=== PATIENT | male | born 1995 | race Two or more races ===

== ENCOUNTER 2017-04-09 21:12 | Emergency (ER) | payer SELFPAY | END 2017-04-09 21:27 | disposition left against medical advice (07) | LOC: ER 21:12 | DX: R10.13 Epigastric pain (principal); Z53.21 Procedure and treatment not carried out due to patient leaving prior to being seen by health care provider ==

== ENCOUNTER 2019-01-07 23:02 | Emergency (ER) | payer MEDICAID ==
[~2019-01-07] VITALS: Ht 182.9 cm; Wt 119.3 kg
[2019-01-07 23:18] VITALS: BP 175/94
[2019-01-07] MEDS ORDERED: ORPHENADRINE CITRATE 60 MG/2 ML VIAL. IM ONE (23:45)
--- NOTE | 2019-01-08 01:02 | RAD ---
INDICATION: Pain in the head and neck COMPARISON: None. TECHNIQUE: Axial CT images obtained through the head and cervical spine without intravenous contrast. Coronal and sagittal reformats processed of cervical spine. One or more of the following individualized dose reduction techniques were utilized for this examination: 1. Automated exposure control; 2. Adjustment of the mA and/or kV according to patient size; 3. Use of iterative reconstruction technique. FINDINGS: Head: No intracranial hemorrhage. No midline shift. Basal cisterns patents. Ventricles and sulci are within normal limits. No acute osseous abnormality. Orbits and paranasal sinuses unremarkable. Cervical: No definite acute fracture. No dislocation. No evidence of perivertebral hematoma. IMPRESSION: 1. No acute intracranial hemorrhage. 2. No definite acute fracture or dislocation of the cervical spine. Electronically signed by: Vinay Lawton MD (01/08/2019 1:00 AM) [facility]
--- NOTE | 2019-01-08 01:28 | RAD ---
INDICATION: Chest and abdomen pain COMPARISON: None. TECHNIQUE: Axial CT images obtained through the chest, abdomen and pelvis without contrast. Limited assessment of solid organ structures and vasculature secondary to lack of intravenous contrast.. One or more of the following individualized dose reduction techniques were utilized for this examination: 1. Automated exposure control; 2. Adjustment of the mA and/or kV according to patient size; 3. Use of iterative reconstruction technique. FINDINGS: Chest: No evidence of pneumothorax. No focal airspace consolidation. Thoracic aorta is not aneurysmal. Subcutaneous induration the fat anterior chest wall. There is some heterogenous density in the anterior mediastinum. Can be seen with residual thymus in a patient of this age. Abdomen and pelvis: Abdominal aorta is not aneurysmal. Induration the fat anterior abdominal and pelvic wall. No definite perihepatic hemorrhage. No peripancreatic fluid collection. No perisplenic hemorrhage. No left-sided hydronephrosis. Urinary bladder has minimal urine within it at time of exam. No right-sided hydronephrosis. Small fat-containing umbilical hernia. No dilated loops of bowel to suggest obstruction. Osseous findings: There is some suspected disc protrusions within the lumbar spine which is more than typically seen for the patient's age with associated narrowing of the central canal IMPRESSION: 1. Limited assessment of the solid organ structures and vasculature secondary to lack of intravenous contrast. Within limits of the exam there is no intrathoracic or intra-abdominal hemorrhage identified. 2. Subcutaneous induration of the fat at the anterior chest, abdomen and pelvis wall which can be seen with a soft tissue contusion if the patient had trauma to this region. Electronically signed by: Vinay Lawton MD (01/08/2019 1:25 AM) [facility]
[2019-01-08] MEDS ORDERED: HYDR-3164 PO (01:38)
[2019-01-08] MEDS ORDERED: ORPH100T PO (01:38)
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
[2019-01-09] MEDS ORDERED: CYCL10TA2 PO (17:42)
[2019-01-09] MEDS ORDERED: TRAM-48 PO (17:42)
== END 2019-01-08 01:45 | disposition home or self-care (01) ==
LOC: ER 23:02
DX: S20.212A Contusion of left front wall of thorax, initial encounter (principal); S30.1XXA Contusion of abdominal wall, initial encounter; M54.2 Cervicalgia; R51 Headache; V86.09XA Driver of other special all-terrain or other off-road motor vehicle injured in traffic accident, initial encounter; Y93.89 Activity, other specified; Y92.488 Other paved roadways as the place of occurrence of the external cause; Y99.8 Other external cause status
CPT/HCPCS: 70450; 71250; 72125; 74176; 96372; 99284; J2360

== ENCOUNTER 2019-01-09 16:21 | Emergency (ER) | payer MEDICAID ==
[~2019-01-09] VITALS: Ht 180.3 cm; Wt 119.3 kg
[~2019-01-09 16:21] MED LIST: HYDR-3164 PO; ORPH100T PO
[2019-01-09 16:54] VITALS: BP 137/84
[2019-01-09] MEDS ORDERED: traMADol 50 MG TABLET PO ONE (17:15)
[2019-01-09] MEDS ORDERED: CYCLOBENZAPRINE 10 MG TABLET. PO ONE (17:15)
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
[2019-01-09] MEDS ORDERED: TRAM-48 PO (17:42)
[2019-01-09] MEDS ORDERED: CYCL10TA2 PO (17:42)
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
== END 2019-01-09 17:55 | disposition home or self-care (01) ==
LOC: ER 16:21
DX: S29.019D Strain of muscle and tendon of unspecified wall of thorax, subsequent encounter (principal); S20.219D Contusion of unspecified front wall of thorax, subsequent encounter; V86.99XD Unspecified occupant of other special all-terrain or other off-road motor vehicle injured in nontraffic accident, subsequent encounter
CPT/HCPCS: 71046; 99284

== ENCOUNTER 2019-02-18 09:27 | Emergency (ER) | payer MEDICAID ==
[~2019-02-18] VITALS: Ht 182.9 cm; Wt 123.4 kg
[~2019-02-18 09:27] MED LIST changes: +CYCL10TA2 PO; +TRAM-48 PO
[2019-02-18 09:37] VITALS: BP 143/82
[2019-02-18] MEDS ORDERED: HYDR30CR61 TP (09:59)
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
== END 2019-02-18 10:46 | disposition home or self-care (01) ==
LOC: ER 09:27
DX: K60.2 Anal fissure, unspecified (principal); F17.210 Nicotine dependence, cigarettes, uncomplicated
CPT/HCPCS: 99282

== ENCOUNTER 2019-05-31 14:08 | Emergency (ER) | payer MEDICAID ==
[~2019-05-31] VITALS: Ht 182.9 cm; Wt 132.9 kg
[~2019-05-31 14:08] MED LIST changes: +HYDR30CR61 TP
[2019-05-31 15:45] VITALS: BP 115/66
[2019-05-31] MEDS ORDERED: MECLIZINE HCL 12.5 MG TABLET. PO STA (15:46)
[2019-05-31] MEDS ORDERED: IV NORMAL SALINE 1000ML BAG 1,000 ML IV ONE (16:00)
[2019-05-31] MEDS ORDERED: ONDANSETRON PF 4 MG/2 ML VIAL. IV ONE (16:00)
--- NOTE | 2019-05-31 16:02 | PHYS DOC ---
Past Medical History Past Medical History: No Pertinent History Past Surgical History: No Surgical History Alcohol Use: Rarely Drug Use: Marijuana Adult General Chief Complaint Chief Complaint: DIZZY/LIGHT HEADED HPI HPI Patient is a 24 year old male who presents with dizziness that's been ongoing since 2 hours before arrival. The patient states is worse when he stands up. Dizziness accompanied by nausea, and vomiting. States the dizziness can be described as the room spinning. Denies ear pain. Review of Systems Review of Systems Constitutional: Denies fever or chills [] Eyes: Denies change in visual acuity, redness, or eye pain [] HENT: Denies nasal congestion or sore throat [] Respiratory: Denies cough or shortness of breath [] Cardiovascular: No additional information not addressed in HPI [] GI: Reports nausea, and vomiting, Denies abdominal pain, bloody stools or diarrhea [] : Denies dysuria or hematuria [] Musculoskeletal: Denies back pain or joint pain [] Integument: Denies rash or skin lesions [] Neurologic: Reports vertigo. Denies headache, focal weakness or sensory changes [] Endocrine: Denies polyuria or polydipsia [] Complete systems were reviewed and found to be within normal limits, except as documented in this note. Current Medications Current Medications Current Medications Medications (Trade) Dose Ordered Sig/Ray Start Time Stop Time Status Last Admin Dose Admin Meclizine HCl (Antivert) 25 mg 1X STAT 05/31/19 15:46 05/31/19 15:49 DC 05/31/19 16:40 25 MG Ondansetron HCl (Zofran) 4 mg 1X ONCE 05/31/19 16:00 05/31/19 16:01 DC 05/31/19 16:40 4 MG Sodium Chloride 1,000 ml @ 1,000 mls/hr 1X ONCE 05/31/19 16:00 05/31/19 16:59 DC 05/31/19 16:40 1,000 MLS/HR Allergies Allergies Allergies Coded Allergies Type Severity Reaction Last Updated Verified No Known Drug Allergies 01/07/19 No Physical Exam Physical Exam Constitutional: Well developed, well nourished, no acute distress, non-toxic appearance. [] HENT: Normocephalic, atraumatic, bilateral external ears normal, oropharynx m oist, no oral exudates, nose normal. [] Eyes: PERRLA, EOMI, conjunctiva normal, no discharge. [] Neck: Normal range of motion, no tenderness, supple, no stridor. [] Cardiovascular:Heart rate regular rhythm, no murmur [] Lungs & Thorax: Bilateral breath sounds clear to auscultation [] Abdomen: Bowel sounds normal, soft, no tenderness, no masses, no pulsatile masses. [] Skin: Warm, dry, no erythema, no rash. [] Back: No tenderness, no CVA tenderness. [] Extremities: No tenderness, no cyanosis, no clubbing, ROM intact, no edema. [] Neurologic: Alert and oriented X 3, normal motor function, normal sensory function, no focal deficits noted. [] Psychologic: Affect normal, judgement normal, mood normal. [] Current Patient Data Vital Signs Vital Signs Date Time Temp Pulse Resp B/P (MAP) Pulse Ox O2 Delivery O2 Flow Rate FiO2 05/31/19 15:05 98.3 61 16 124/62 (82) 100 Room Air 98.3 Lab Values Laboratory Tests Test 05/31/19 15:18 05/31/19 16:30 Glucose (Fingerstick) 122 mg/dL (70-99) H White Blood Count 11.0 x10^3/uL (4.0-11.0) Red Blood Count 4.85 x10^6/uL (4.30-5.70) Hemoglobin 14.4 g/dL (13.0-17.5) Hematocrit 42.2 % (39.0-53.0) Mean Corpuscular Volume 87 fL (79-100) Mean Corpuscular Hemoglobin 30 pg (25-35) Mean Corpuscular Hemoglobin Concent 34 g/dL (31-37) Red Cell Distribution Width 13.2 % (11.5-14.5) Platelet Count 292 x10^3/uL (140-400) Neutrophils (%) (Auto) 80 % (31-73) H Lymphocytes (%) (Auto) 12 % (24-48) L Monocytes (%) (Auto) 7 % (0-9) Eosinophils (%) (Auto) 1 % (0-3) Basophils (%) (Auto) 0 % (0-3) Neutrophils # (Auto) 8.8 x10^3/uL (1.8-7.7) H Lymphocytes # (Auto) 1.4 x10^3/uL (1.0-4.8) Monocytes # (Auto) 0.7 x10^3/uL (0.0-1.1) Eosinophils # (Auto) 0.1 x10^3/uL (0.0-0.7) Basophils # (Auto) 0.0 x10^3/uL (0.0-0.2) Sodium Level 139 mmol/L (136-145) Potassium Level 3.9 mmol/L (3.5-5.1) Chloride Level 103 mmol/L (98-107) Carbon Dioxide Level 28 mmol/L (21-32) Anion Gap 8 (6-14) Blood Urea Nitrogen 13 mg/dL (8-26) Creatinine 0.8 mg/dL (0.7-1.3) Estimated GFR (Cockcroft-Gault) 120.9 BUN/Creatinine Ratio 16 (6-20) Glucose Level 117 mg/dL (70-99) H Calcium Level 9.0 mg/dL (8.5-10.1) Total Bilirubin 0.4 mg/dL (0.2-1.0) Aspartate Amino Transferase (AST) 33 U/L (15-37) Alanine Aminotransferase (ALT) 78 U/L (16-63) H Alkaline Phosphatase 74 U/L (46-116) Total Protein 7.5 g/dL (6.4-8.2) Albumin 3.6 g/dL (3.4-5.0) Albumin/Globulin Ratio 0.9 (1.0-1.7) L Laboratory Tests 05/31/19 16:30 Laboratory Tests 05/31/19 16:30 EKG EKG [] Radiology/Procedures Radiology/Procedures DICTATED and SIGNED BY: LARS SANTANA DO DATE: 05/31/19 1608 [][facility] [address] [place], [place] [id number] IMAGING REPORT Signed PATIENT: GERTRUDE MACIAS ACCOUNT: [id number] : 1995 LOCATION: ER AGE: 24 SEX: M EXAM STATUS: REG ER ORD. PHYSICIAN: FABRICIO HUERTAS APRN REASON: dizziness PROCEDURE: CT HEAD WO CONTRAST PQRS Compliance statement: One or more of the following individualized dose reduction techniques were utilized for this examination: 1. Automated exposure control. 2. Adjustment of the mA and/or kV according to patient size. 3. Use of iterative reconstruction technique. Indication: Dizziness TECHNIQUE: CT head without IV contrast COMPARISON: 01/08/2019 FINDINGS: No pathologic extra-axial or intra-axial fluid collection. The ventricles and basal cisterns are within normal limits. No acute intracranial bleed. No focal loss of wu-white differentiation. Orbits are within normal limits. No suspicious calvarial lesion. Visualized paranasal sinuses and mastoid air cells are clear. IMPRESSION: No acute intracranial process on this noncontrast CT. Electronically signed by: Lars Santana DO (05/31/2019 4:08 PM) [id number] DICTATED and SIGNED BY: LARS SANTANA DO DATE: 05/31/19 1608 Course & Med Decision Making Course & Med Decision Making Pertinent Labs and Imaging studies reviewed. (See chart for details) Will get CT head, labs, fluids, zofran, and meclizine. Labs and imaging are unremarkable. Dragon Disclaimer Dragon Disclaimer This electronic medical record was generated, in whole or in part, using a voice recognition dictation system. Departure Departure Impression: Primary Impression: Vertigo Disposition: 01 HOME, SELF-CARE Condition: STABLE Referrals: NO PCP (PCP) Patient Instructions: Vertigo Additional Instructions: Thank you for visiting [facility]. We appreciate you trusting us with your care. If any additional problems come up don't hesitate to return to visit us. Please follow up with your primary care provider so they can plan additional care if needed and know about the problem that you had. If symptoms worsen come back to the Emergency Department. Any concerning symptoms that start such as chest pain, shortness of air, weakness or numbness on one side of the body, running high fevers or any other concerning symptoms return to the ER. Scripts Meclizine Hcl (MECLIZINE HCL) 25 Mg Tablet 1 TAB PO PRN TID PRN for DIZZINESS, #30 TAB Prov: FABRICIO HUERTAS APRN 05/31/19 FABRICIO HUERTAS APRN May 31, 2019 16:02
--- NOTE | 2019-05-31 16:11 | RAD ---
PQRS Compliance statement: One or more of the following individualized dose reduction techniques were utilized for this examination: 1. Automated exposure control. 2. Adjustment of the mA and/or kV according to patient size. 3. Use of iterative reconstruction technique. Indication: Dizziness TECHNIQUE: CT head without IV contrast COMPARISON: 01/08/2019 FINDINGS: No pathologic extra-axial or intra-axial fluid collection. The ventricles and basal cisterns are within normal limits. No acute intracranial bleed. No focal loss of wu-white differentiation. Orbits are within normal limits. No suspicious calvarial lesion. Visualized paranasal sinuses and mastoid air cells are clear. IMPRESSION: No acute intracranial process on this noncontrast CT. Electronically signed by: Lars Santana DO (05/31/2019 4:08 PM) [id number]
[2019-05-31 16:44] LABS: BASO % 0 % (0-3); EOS # 0.1 x10^3/uL (0.0-0.7); EOS % 1 % (0-3); HEMATOCRIT 42.2 % (39.0-53.0); HEMOGLOBIN 14.4 g/dL (13.0-17.5); LYMPH # 1.4 x10^3/uL (1.0-4.8); LYMPH % 12 % (24-48); MEAN CORPUSCULAR HEMOGLOBIN 30 pg (25-35); MEAN CORPUSCULAR HGB CONC 34 g/dL (31-37); MEAN CORPUSCULAR VOLUME 87 fL (79-100); MONO # 0.7 x10^3/uL (0.0-1.1); MONO % 7 % (0-9); NEUT # 8.8 x10^3/uL (1.8-7.7); NEUT % 80 % (31-73); PLATELET COUNT 292 x10^3/uL (140-400); RED BLOOD COUNT 4.85 x10^6/uL (4.30-5.70); RED CELL DISTRIBUTION WIDTH 13.2 % (11.5-14.5)
[2019-05-31 16:53] LABS: CREATININE 0.8 mg/dL (0.7-1.3); GFR 120.9; POTASSIUM 3.9 mmol/L (3.5-5.1)
[2019-05-31 16:59] LABS: ALBUMIN 3.6 g/dL (3.4-5.0); ALBUMIN/GLOBULIN RATIO 0.9 (1.0-1.7); TOTAL BILIRUBIN 0.4 mg/dL (0.2-1.0); TOTAL PROTEIN 7.5 g/dL (6.4-8.2)
[2019-05-31] MEDS ORDERED: MECL25TA3 PO (17:30)
== END 2019-05-31 17:52 | disposition home or self-care (01) ==
LOC: ER 14:08
DX: R42 Dizziness and giddiness (principal); R11.2 Nausea with vomiting, unspecified
CPT/HCPCS: 36415; 70450; 80053; 82962; 85025; 96361; 96374; 99285; J2405; J7030; J8597

== ENCOUNTER 2019-06-27 11:37 | Emergency (ER) | payer MEDICAID ==
[~2019-06-27] VITALS: Ht 182.9 cm; Wt 132.9 kg
[~2019-06-27 11:37] MED LIST changes: +MECL-75 PO
[2019-06-27 12:35] VITALS: BP 125/88
[2019-06-27 13:32] LABS: INFLUENZA A PATIENT NEGATIVE (NEGATIVE)
[2019-06-27 13:33] LABS: INFLUENZA B PATIENT POSITIVE (NEGATIVE)
[2019-06-27] MEDS ORDERED: OSEL75CA PO (13:53)
[2019-06-27] MEDS ORDERED: BENZ100C PO (13:53)
--- NOTE | 2019-06-27 13:54 | PHYS DOC ---
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) Review of Systems Review of Systems Constitutional: reports fever Eyes: Denies change in visual acuity, redness, or eye pain [] HENT: Denies nasal congestion or sore throat [] Respiratory: cough deniesshortness of breath [] Cardiovascular: No additional information not addressed in HPI [] GI: Denies abdominal pain, nausea, vomiting, bloody stools or diarrhea [] : Denies dysuria or hematuria [] Musculoskeletal: Denies back pain or joint pain [] Integument: Denies rash or skin lesions [] Neurologic: Denies headache, focal weakness or sensory changes [] All other systems were reviewed and found to be within normal limits, except as documented in this note. 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 [] HENT: Normocephalic, atraumatic, bilateral external ears normal, oropharynx mo ist, no oral exudates, nose normal. [] Eyes: PERRLA, EOMI, conjunctiva normal, no discharge. [] Neck: Normal range of motion, no tenderness, supple, no stridor. [] Cardiovascular:Heart rate regular rhythm, no murmur [] Lungs & Thorax: Bilateral breath sounds clear to auscultation [] Abdomen: Bowel sounds normal, soft, no tenderness, no masses, no pulsatile masses. [] Skin: Warm, dry, no erythema, no rash. [] Back: No tenderness, no CVA tenderness. [] Extremities: No tenderness, no cyanosis, no clubbing, ROM intact, no edema. [] Neurologic: Alert and oriented X 3, normal motor function, normal sensory function, no focal deficits noted. [] Psychologic: Affect normal, judgement normal, mood normal. [] (TROY TRAN APRN) Current Patient Data Vital Signs Vital Signs Date Time Temp Pulse Resp B/P (MAP) Pulse Ox O2 Delivery O2 Flow Rate FiO2 06/27/19 12:35 99.4 112 16 125/88 (100) 98 Room Air 99.4 (FABRICIO BLOCK DO) Lab Values Laboratory Tests Test 06/27/19 12:30 Influenza Type A Antigen Negative (NEGATIVE) Influenza Type B Antigen Positive (NEGATIVE) (FABRICIO BLOCK DO) EKG EKG [] (TROY TRAN APRN) Radiology/Procedures Radiology/Procedures [] (TROY TRAN APRN) Course & Med Decision Making Course & Med Decision Making Pertinent Labs and Imaging studies reviewed. (See chart for details) This is a 24-year-old male patient with fever and cough for 2 days. Positive influenza B. Discharged with Tamiflu, Tessalon Perles and instructed to take Tylenol/Motrin. (TROY TRAN APRN) Dragon Disclaimer Dragon Disclaimer This electronic medical record was generated, in whole or in part, using a voice recognition dictation system. (TROY TRAN APRN) Departure Departure Impression: Primary Impression: Influenza B Additional Impressions: Fever Cough Disposition: 01 HOME, SELF-CARE Condition: STABLE Referrals: NO PCP (PCP) follow up with your doctor in 1-2 weeks Patient Instructions: Cough, Adult, Fever, Adult, [id number], Influenza, Adult Additional Instructions: You have influenza B. this is a viral illness please take Tylenol every 4 hours and Motrin every 6 hours. Please push fluids. Please take the prescribed Tamiflu as ordered. Follow-up with your own doctor in 1-2 weeks. Scripts Benzonatate (TESSALON PERLE) 100 Mg Capsule 1 CAP PO TID, #30 CAP Prov: TROY TRAN APRN 06/27/19 Oseltamivir Phosphate (TAMIFLU) 75 Mg Capsule 1 CAP PO BID, #10 CAP Prov: TROY TRAN APRN 06/27/19 Attending Signature Attending Signature I have reviewed the PA/CVICU RN's note and plan of care. I was available for consultation as needed during the patient's visit in the emergency department. I agree with the clinical impression, plan, and disposition. (BLOCK,FABRICIO R DO) Problem Qualifiers Additional Impressions: Fever Fever type: unspecified Qualified Codes: R50.9 - Fever, unspecified CHELSEATRYO SMITH Jun 27, 2019 13:54 FABRICIO BLOCK DO Jun 28, 2019 06:16
== END 2019-06-27 13:58 | disposition home or self-care (01) ==
LOC: ER 11:37
DX: J10.1 Influenza due to other identified influenza virus with other respiratory manifestations (principal)
CPT/HCPCS: 87804; 99284

== ENCOUNTER 2020-08-24 18:43 | Emergency (ER) | payer SELFPAY ==
[~2020-08-24] VITALS: Ht 185.4 cm; Wt 111.8 kg
[~2020-08-24 18:43] MED LIST changes: +BENZ100C PO; +OSEL75CA PO
[2020-08-24] MEDS ORDERED: IV NORMAL SALINE 1000ML BAG 1,000 ML IV ONE (19:00)
--- NOTE | 2020-08-24 19:04 | PHYS DOC ---
Past Medical History Past Medical History: No Pertinent History Past Surgical History: No Surgical History Smoking Status: Current Every Day Smoker Alcohol Use: Rarely Drug Use: Marijuana General Adult EDM: Chief Complaint: HYPOTENSION HPI: HPI: Patient is a 25 year old male who is currently being treated for opiate abuse and taking methadone on day 3 presents for evaluation of hypotension dizziness diaphoresis and chest discomfort. Patient states approximately 30 minutes after taking 35 mg methadone he started to feel dizzy lightheaded and became diaphoretic. Patient called 911 upon their arrival patient was found to be hypotensive. EMS treated patient with IV fluids. Upon arrival patient ambulated into the ER with a normal steady gait. On exam patient states he feels much better he denies any dizziness diaphoresis or chest discomfort. Patient's blood pressures 110 systolic. EKG performed shows a sinus rhythm heart rate [address] elevation no ST depression no acute CT. Treatment plan to rehydrate patient and observe. Review of Systems: Review of Systems: Review of systems: Constitutional symptoms- No fever, no chills. Eyes- No Discharge, No Visual Loss Respiratory symptoms- No shortness of breath, No wheezing, No Dyspnea on Exertion Cardiovascular Systems;Positive chest pain, No Palpitations, No syncope Gastrointestinal symptoms: NO abdominal pain, no nausea, no vomiting or diarrhea. Genitourinary symptoms: No dysuria. Musculoskeletal symptoms: No back pain No extremity pain. NEUROLOGICAL Symptoms: No headache, no generalized weakness; No focal Weakness positive dizziness Skin positive diaphoresis Heart Score: Risk Factors: Risk Factors: DM, Current or recent (<one month) smoker, HTN, HLP, family history of CAD, obesity. Risk Scores: Score 0 - 3: 2.5% MACE over next 6 weeks - Discharge Home Score 4 - 6: 20.3% MACE over next 6 weeks - Admit for Clinical Observation Score 7 - 10: 72.7% MACE over next 6 weeks - Early Invasive Strategies Allergies: Allergies: Allergies Coded Allergies Type Severity Reaction Last Updated Verified No Known Drug Allergies 01/07/19 No Physical Exam: PE: General: alert, no acute distress. Skin: warm, dry and intact. Head:: Normocephalic, atraumatic. Neck: Trachea midline. Eyes: EOMI, Normal conjunctiva, No drainage CARDIOVASCULAR: Regular rate and rhythm RESPIRATORY: No respiratory distress Back: Full range of motion. MUSCULOSKELETAL: Full range of motion of bilateral upper and lower extremities. NEUROLOGICAL: Alert and noted to person, place and time. No neurological deficits observed Psychiatric: Cooperative. Normal judgment EKG: EKG: EKG performed at 1846 heart rate [address] elevation no ST depression no acute CT [] Radiology/Procedures: Radiology/Procedures: [] Course & Med Decision Making: Course & Med Decision Making Pertinent Labs and Imaging studies reviewed. (See chart for details) [] Patient was evaluated for chief complaint. Based upon history of present illness and physical exam only an EKG was performed. EKG was within normal limits. Treatment included 1 L of IV fluids. Patient's was monitored vital signs have been stable. Patient denied any return of chest pain dizziness diaphoresis. Dragon Disclaimer: Dragon Disclaimer: This electronic medical record was generated, in whole or in part, using a voice recognition dictation system. Departure Departure Impression: Primary Impression: Medication reaction Additional Impression: Hypotension Condition: STABLE Referrals: NO PCP (PCP) Patient Instructions: Dizziness, Hypotension Additional Instructions: Drug Reaction Medication Intolerance MANJU WISE DO Aug 24, 2020 19:04
--- NOTE | 2020-08-24 19:52 | EKG ---
[facility] [address] [place] [address] Test Date: 2020-08-24 Test Time: 18:46:57 Pat Name: GERTRUDE MACIAS Department: Room: Gender: M [employer] Purch[employer]: : 1995 Requested By: MANJU WISE Order Number: [id number] Reading MD: Measurements Intervals Hospers Rate: 82 P: 24 AL: 150 QRS: -9 QRSD: 80 T: 9 QT: 370 QTc: 435 Interpretive Statements SINUS RHYTHM LEFTWARD AXIS OTHERWISE NORMAL ECG RI6.01 No previous ECG available for comparison
[2020-08-24 20:05] VITALS: BP 103/51
== END 2020-08-24 20:05 | disposition home or self-care (01) ==
LOC: ER 18:43
DX: I95.9 Hypotension, unspecified (principal); T40.3X5A Adverse effect of methadone, initial encounter; R07.89 Other chest pain; R42 Dizziness and giddiness; R61 Generalized hyperhidrosis; F11.10 Opioid abuse, uncomplicated; F17.200 Nicotine dependence, unspecified, uncomplicated; Y92.89 Other specified places as the place of occurrence of the external cause
CPT/HCPCS: 93005; 96360; 99283; J7030

== ENCOUNTER 2021-05-04 11:49 | Observation (INO) | payer SELFPAY ==
[~2021-05-04] VITALS: Ht 185.4 cm; Wt 111.8 kg
[~2021-05-04 11:49] MED LIST changes: +CYCL10TA19 PO; -CYCL10TA2 PO
[2021-05-04] MEDS ORDERED: HYDROcodone/APAP 5/325MG 1 TAB TABLET PO ONE (13:15)
[2021-05-04] MEDS ORDERED: IBUPROFEN 200 MG TABLET. PO ONE (13:15)
--- NOTE | 2021-05-04 13:55 | RAD ---
XR EXAM OF ANKLE_RIGHT 3VIEWS, XR FOOT_RIGHT 3 VIEWS DATE: 05/04/2021 1:04 PM INDICATION: Pain swelling after twisting ankle 4 days ago COMPARISON: None. FINDINGS: Bones: Acute trimalleolar fracture with mild displacement. Joints: The ankle mortise is congruent. No widening of the distal tibiofibular syndesmosis. Miscellaneous: Soft tissue swelling about the ankle. IMPRESSION: Acute trimalleolar fracture Electronically signed by: Bharat Park MD (05/04/2021 1:53 PM) [facility]
--- NOTE | 2021-05-04 14:03 | PHYS DOC ---
Past Medical History Past Medical History: No Pertinent History (FABRICIO PADILLA APRN) Past Surgical History: No Surgical History (FABRICIO PADILLA APRN) Smoking Status: Current Every Day Smoker Alcohol Use: Rarely Drug Use: Marijuana (FABRICIO PADLILA APRN) General Adult EDM: Chief Complaint: ANKLE PROBLEM HPI: HPI: Patient is a 25 year old male presents emergency department chief complaint of right ankle pain swelling bruising for the past 4 days. Patient reports he was in shelter and jumped off the top bunk and rolled his ankle feeling a crack, patient reports he has been unable to ambulate or put pressure on his right foot and ankle since the incident. Patient reports he just got out of shelter today and came straight to the emergency department for medical evaluation. Patient denies other physical complaints or physical concerns. Denies allergies to medications, states she does not take any [id number] or prescription medications at home. Patient reports a 8 out of 10 pain. (FABRICIO PADILLA APRN) Review of Systems: Review of Systems: 14 body systems of review of systems have been reviewed. See HPI for pertinent positives and negative responses, otherwise all other systems are negative, nonpertinent or noncontributory. Constitutional: Negative except as outlined in HPI above. Skin: Negative except as outlined in HPI above. Eyes: Negative except as outlined in HPI above. HENT: Negative except as outlined in HPI above. Respiratory: Negative except as outlined in HPI above. Cardiovascular: Negative except as outlined in HPI above. GI: Negative except as outlined in HPI above. : Negative except as outlined in HPI above. Musculoskeletal: Negative except as outlined in HPI above. Integument: Negative except as outlined in HPI above. Neurologic: Negative except as outlined in HPI above. Endocrine: Negative except as outlined in HPI above. Lymphatic: Negative except as outlined in HPI above. Psychiatric: Negative except as outlined in HPI above. (FARBICIO PADILLA APRN) Heart Score: C/O Chest Pain: No Risk Factors: Risk Factors: DM, Current or recent (<one month) smoker, HTN, HLP, family history of CAD, obesity. Risk Scores: Score 0 - 3: 2.5% MACE over next 6 weeks - Discharge Home Score 4 - 6: 20.3% MACE over next 6 weeks - Admit for Clinical Observation Score 7 - 10: 72.7% MACE over next 6 weeks - Early Invasive Strategies (FABRICIO PADILLA APRN) Current Medications: Current Medications Medications (Trade) Dose Ordered Sig/Ray Start Time Stop Time Status Last Admin Dose Admin Acetaminophen/ Hydrocodone Bitart (Lortab 5/325) 1 tab 1X ONCE 05/04/21 13:15 05/04/21 13:16 DC 05/04/21 13:20 1 TAB Ibuprofen (Motrin) 600 mg 1X ONCE 05/04/21 13:15 05/04/21 13:16 DC 05/04/21 13:21 600 MG (FABRICIO PADILLA APRN) Allergies: Allergies: Allergies Coded Allergies Type Severity Reaction Last Updated Verified No Known Drug Allergies 01/07/19 No (FABRICIO PADILLA APRN) Physical Exam: PE: Constitutional: Well developed, well nourished, no acute distress, non-toxic appearance. 25-year-old male ambulates with crutches favoring right lower extremity otherwise in no apparent distress. HENT: Normocephalic, atraumatic. Eyes: Conjunctiva normal, no discharge. Neck: Normal range of motion, no stridor. Cardiovascular: No cyanosis appreciated, distal cap refill less than 2 seconds. Lungs & Thorax: Patient is in no respiratory distress, no audible adventitious lung sounds appreciated. Abdomen: Nontender, no abnormalities noted. Skin: Warm, dry, no erythema, no rash. Back: No tenderness, no deformities. Extremities: No tenderness, no cyanosis, no clubbing, ROM intact, no edema. Except for right lower extremity ankle bruising on medial lateral malleolar skin surfaces with 2+ nonpitting edema, 1+ pedal pulse on the right with distal cap refill less than 2 seconds, 2+ pedal pulse on left with distal cap refill less than 2 seconds, limited passive range of motion of ankle joint related to pain, no pain elicited to knee joint or calf area of the right lower extremity Neurologic: Alert and oriented X 3, normal motor function, normal sensory funct ion, no focal deficits noted. Psychologic: Affect normal, judgement normal, mood normal. (FABRICIO PADILLA APRN) Current Patient Data: Vital Signs: Vital Signs Date Time Temp Pulse Resp B/P (MAP) Pulse Ox O2 Delivery O2 Flow Rate FiO2 05/04/21 13:20 16 98 Room Air 05/04/21 13:15 99.1 99 123/78 (93) 99.1 (FABRICIO PADILLA APRN) EKG: EKG: [] (FABRICIO PADILLA APRN) Radiology/Procedures: Radiology/Procedures: PATIENT: GERTRUDE MACIAS ACCOUNT: [id number] : 1995 LOCATION: ER AGE: 25 SEX: M EXAM STATUS: REG ER ORD. PHYSICIAN: FABRICIO PADILLA APRN REASON: Pain swelling after twisting ankle 4 days ago PROCEDURE: FOOT RIGHT 3V XR EXAM OF ANKLE_RIGHT 3VIEWS, XR FOOT_RIGHT 3 VIEWS DATE: 05/04/2021 1:04 PM INDICATION: Pain swelling after twisting ankle 4 days ago COMPARISON: None. FINDINGS: Bones: Acute trimalleolar fracture with mild displacement. Joints: The ankle mortise is congruent. No widening of the distal tibiofibular syndesmosis. Miscellaneous: Soft tissue swelling about the ankle. IMPRESSION: Acute trimalleolar fracture Electronically signed by: Alycia Park MD (05/04/2021 1:53 PM) [facility] DICTATED and SIGNED BY: ALYCIA PARK MD DATE: 05/04/21 [id number] (FABRICIO PADILLA APRN) Course & Med Decision Making: Course & Med Decision Making Pertinent Labs and Imaging studies reviewed. (See chart for details) 25-year-old male, vital signs reviewed, presents emergency department concerning right ankle pain after jumping off a top bunk and twisting his ankle 4 days ago. Physical examination concerning for possible bony fracture of the right ankle versus sprain. Will order x-ray of right foot and ankle, pain medication, ice and elevate. X-ray concerning for trimalleolar fracture, will order tib-fib to rule out proximal fibula fracture related to twisting injury resulted in trimalleolar in jury. Discussed with patient admission to the hospital for surgical repair. Patient is amenable to ED admission planning. Called and discussed patient case and ED work-up with orthopedic surgeon Dr. Ernst who agrees patient's case warrants admission to the MedSurg unit, request patient be n.p.o. after midnight with planning for surgical repair in a.m. Called and discussed patient case and ED work-up with inpatient management physician Dr. Light who agrees patient's case warrants admission to the hospital, We will provide primary hospital care with orthopedic surgeon Dr. Ernst consulting for surgical repair of right ankle trimalleolar fracture. 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 (FABRICIO PADILLA APRN) Course & Med Decision Making I have participated in the care of this patient and I have reviewed and agree with all pertinent clinical information above including history, exam, and recommendations. Tamie Randhawa DO (TAMIE RANDHAWA DO) Chris Disclaimer: Chris Disclaimer: This electronic medical record was generated, in whole or in part, using a voice recognition dictation system. (FABRICIO PADILLA APRN) Departure Departure Impression: Primary Impression: Trimalleolar fracture of ankle, closed Qualified Codes: S82.851A - Displaced trimalleolar fracture of right lower leg, initial encounter for closed fracture Disposition: ADMITTED INPATIENT Admitting Physician: [facility], Dr. Ernst orthopedic consult) (FABRICIO PADILLA APRN) Condition: STABLE Referrals: NO PCP (PCP) FABRICIO PADILLA APRN May 04, 2021 14:03 TAMIE RANDHAWA DO May 04, 2021 15:27
[2021-05-04] MEDS ORDERED: fentaNYL PF VIAL 100 MCG/2 ML VIAL IVP ONE (15:00)
[2021-05-04 15:33] LABS: BASO # 0.1 x10^3/uL (0.0-0.2); BASO % 1 % (0-3); EOS # 0.1 x10^3/uL (0.0-0.7); EOS % 1 % (0-3); HEMATOCRIT 38.2 % (39.0-53.0); HEMOGLOBIN 13.7 g/dL (13.0-17.5); LYMPH # 2.2 x10^3/uL (1.0-4.8); LYMPH % 19 % (24-48); MEAN CORPUSCULAR HEMOGLOBIN 31 pg (25-35); MEAN CORPUSCULAR HGB CONC 36 g/dL (31-37); MEAN CORPUSCULAR VOLUME 88 fL (79-100); MONO # 1.1 x10^3/uL (0.0-1.1); MONO % 9 % (0-9); NEUT % 69 % (31-73); PLATELET COUNT 288 x10^3/uL (140-400); RED BLOOD COUNT 4.36 x10^6/uL (4.30-5.70); RED CELL DISTRIBUTION WIDTH 13.1 % (11.5-14.5); WHITE BLOOD COUNT 11.6 x10^3/uL (4.0-11.0)
[2021-05-04 15:48] LABS: CALCIUM 8.7 mg/dL (8.5-10.1); GFR 92.6; POTASSIUM 3.6 mmol/L (3.5-5.1)
[2021-05-04 15:54] LABS: ALBUMIN 3.6 g/dL (3.4-5.0); ALBUMIN/GLOBULIN RATIO 0.8 (1.0-1.7); TOTAL BILIRUBIN 1.1 mg/dL (0.2-1.0); TOTAL PROTEIN 8.1 g/dL (6.4-8.2)
--- NOTE | 2021-05-04 16:06 | RAD ---
Right tibia-fibula AP lateral x-rays HISTORY: Twisting injury with trimalleolar fracture right ankle. FINDINGS: Acute traumatic comminuted fracture of the distal fibula metadiaphysis into the lateral mal leolus. Acute traumatic fracture of the tibial plafond and medial malleolus with intra-articular exte nsion. This is consistent with a trimalleolar fracture. There is no fracture of the shaft of the tibi a or fibula or of the proximal segments at the calf or knee. IMPRESSION: Acute traumatic trimalleolar fracture of the tibia and fibula at the ankle. No additional fractures of the upper segments of the tibia and fibula at the calf or knee evident. Electronically signed by: Ulises Pelayo MD (05/04/2021 4:03 PM) [id number]
[2021-05-04] MEDS ORDERED: HYDROmorphone 2 MG/ML VIAL IVP ONE (16:30)
--- NOTE | 2021-05-04 16:34 | PDOC1 ---
History and Physical Date of Service: DOS: DATE: 05/04/21 TIME: 16:30 Chief Complaint: Chief Complain: Fall from bunk bed height History of Present Illness: HPI: History obtained from discussion with the ED physician and chart review 25 year old male presents emergency department chief complaint of right ankle pain swelling bruising for the past 4 days. Patient reports he was in [facility] and jumped off the top bunk and rolled his ankle feeling a crack, patient reports he has been unable to ambulate or put pressure on his right foot and ankle since the incident. Patient reports he just got out of [facility] today and came straight to the emergency department for medical evaluation. Patient denies other physical complaints or physical concerns. Denies allergies to medications, st ates she does not take any [id number] or prescription medications at home. Patient reports a 8 out of 10 pain. Past Medical/Surgical History: PMH/PSH: Past Medical History: No Pertinent History Past Surgical History: No Surgical History Allergies: Allergies: Coded Allergies: No Known Drug Allergies (Unverified , 01/07/19) Family History: Family History: Reviewed with no relevant findings Social History: Social History: Smoking Status: Current Every Day Smoker Alcohol Use: Rarely Drug Use: Marijuana Current Medications: Current Medications Current Medications Acetaminophen/ Hydrocodone Bitart (Lortab 5/325) 1 tab 1X ONCE PO Last administered on 05/04/21at 13:20; Start 05/04/21 at 13:15; Stop 05/04/21 at 13:16; Status DC Ibuprofen (Motrin) 600 mg 1X ONCE PO Last administered on 05/04/21at 13:21; Start 05/04/21 at 13:15; Stop 05/04/21 at 13:16; Status DC Fentanyl Citrate (Fentanyl 2ml Vial) 100 mcg 1X ONCE IVP Last administered on 05/04/21at 15:35; Start 05/04/21 at 15:00; Stop 05/04/21 at 15:01; Status DC Active Scripts Active Tessalon Perle (Benzonatate) 100 Mg Capsule 1 Cap PO TID Tamiflu (Oseltamivir Phosphate) 75 Mg Capsule 1 Cap PO BID Meclizine Hcl 25 Mg Tablet 1 Tab PO PRN TID PRN Anusol-Hc (Hydrocortisone) 30 Gm Cream..g. 1 Richie TP BID PRN Ultram (Tramadol Hcl) 50 Mg Tablet 50 Mg PO Q6HRS PRN Cyclobenzaprine Hcl 10 Mg Tablet 1 Tab PO TID [place] 5-325 Tablet (Acetaminophen/Hydrocodone Bitart) 1 Each Tablet 0.5-1 Tab PO PRN Q6HRS PRN Orphenadrine Citrate 100 Mg Tablet.er 100 Mg PO BID PRN ROS: Review of Systems Review of System REVIEW OF SYSTEMS: GENERAL: Denies weakness SKIN: No bruising, hair changes or rashes. EYES: No blurred, double or loss of vision. NOSE AND THROAT: No history of nosebleeds, hoarseness or sore throat. HEART: No history of palpitations, chest pain or shortness of breath on exertion. LUNGS: Denies cough, hemoptysis, wheezing or shortness of breath. GASTROINTESTINAL: Denies changes in appetite, nausea, vomiting, diarrhea or constipation. GENITOURINARY: No history of frequency, urgency, hesitancy or nocturia. NEUROLOGIC: Denies history of numbness, tingling, or tremor. PSYCHIATRIC: No history of panic, anxiety or depression. ENDOCRINE: No history of heat or cold intolerance, polyuria or polydipsia. EXTREMITIES: Right ankle pain Physical Exam: Vital Signs: Vital Signs Date Time Temp Pulse Resp B/P (MAP) Pulse Ox O2 Delivery O2 Flow Rate FiO2 05/04/21 15:35 16 99 Room Air 05/04/21 13:15 99.1 99 123/78 (93) 99.1 Physcial Exam: GEN: No apparent distress. Alert and oriented HEENT: Normal cephalic, atraumatic, external auditory canals are patent EYES: Extraocular muscles are intact, pupil are equally round and reactive to light and accommodation MUSCULOSKELETAL: Well developed , well nourished, good range of motion ENDOCRINE: No thyromegaly was palpated LYMPHATICS: No cervical chain or axillary nodes were noted HEMATOPOIETIC: No bruising NECK: Supple, no JVD, no thyromegaly was noted LUNGS: Clear to auscultation in all lung francis without rhonchi or wheezing HEART: RRR, S!, S2 present. Peripheral pulses intact, no obvious murmurs noted ABDOMEN: Soft, nontender. Positive bowel sounds, no organomegaly, normal bowel sounds EXTREMITIES: Without clubbing, cyanosis, or edema. Pedal pulses intact. Negative Homans sign NEUROLOGIC: Normal speech and tone. A&O x 3, moves all extremities, no obv ious focal deficits PSYCHIATRIC: Normal affect, normal mood. Stable SKIN: No ulcerations or rashes, good skin turgor, no jaundice VASCULAR: Good capillary refill, neurovascular bundle appears to be intact Labs: Labs: Laboratory Tests Test 05/04/21 15:20 05/04/21 15:25 White Blood Count 11.6 x10^3/uL (4.0-11.0) Red Blood Count 4.36 x10^6/uL (4.30-5.70) Hemoglobin 13.7 g/dL (13.0-17.5) Hematocrit 38.2 % (39.0-53.0) Mean Corpuscular Volume 88 fL (79-100) Mean Corpuscular Hemoglobin 31 pg (25-35) Mean Corpuscular Hemoglobin Concent 36 g/dL (31-37) Red Cell Distribution Width 13.1 % (11.5-14.5) Platelet Count 288 x10^3/uL (140-400) Neutrophils (%) (Auto) 69 % (31-73) Lymphocytes (%) (Auto) 19 % (24-48) Monocytes (%) (Auto) 9 % (0-9) Eosinophils (%) (Auto) 1 % (0-3) Basophils (%) (Auto) 1 % (0-3) Neutrophils # (Auto) 8.0 x10^3/uL (1.8-7.7) Lymphocytes # (Auto) 2.2 x10^3/uL (1.0-4.8) Monocytes # (Auto) 1.1 x10^3/uL (0.0-1.1) Eosinophils # (Auto) 0.1 x10^3/uL (0.0-0.7) Basophils # (Auto) 0.1 x10^3/uL (0.0-0.2) Sodium Level 138 mmol/L (136-145) Potassium Level 3.6 mmol/L (3.5-5.1) Chloride Level 101 mmol/L (98-107) Carbon Dioxide Level 33 mmol/L (21-32) Anion Gap 4 (6-14) Blood Urea Nitrogen 14 mg/dL (8-26) Creatinine 1.0 mg/dL (0.7-1.3) Estimated GFR (Cockcroft-Gault) 92.6 BUN/Creatinine Ratio 14 (6-20) Glucose Level 85 mg/dL (70-99) Calcium Level 8.7 mg/dL (8.5-10.1) Total Bilirubin 1.1 mg/dL (0.2-1.0) Aspartate Amino Transf (AST/SGOT) 24 U/L (15-37) Alanine Aminotransferase (ALT/SGPT) 41 U/L (16-63) Alkaline Phosphatase 86 U/L (46-116) Total Protein 8.1 g/dL (6.4-8.2) Albumin 3.6 g/dL (3.4-5.0) Albumin/Globulin Ratio 0.8 (1.0-1.7) SARS-CoV-2 Antigen (Rapid) Negative (NEGATIVE) Laboratory Tests Test 05/04/21 15:20 05/04/21 15:25 White Blood Count 11.6 x10^3/uL (4.0-11.0) Red Blood Count 4.36 x10^6/uL (4.30-5.70) Hemoglobin 13.7 g/dL (13.0-17.5) Hematocrit 38.2 % (39.0-53.0) Mean Corpuscular Volume 88 fL (79-100) Mean Corpuscular Hemoglobin 31 pg (25-35) Mean Corpuscular Hemoglobin Concent 36 g/dL (31-37) Red Cell Distribution Width 13.1 % (11.5-14.5) Platelet Count 288 x10^3/uL (140-400) Neutrophils (%) (Auto) 69 % (31-73) Lymphocytes (%) (Auto) 19 % (24-48) Monocytes (%) (Auto) 9 % (0-9) Eosinophils (%) (Auto) 1 % (0-3) Basophils (%) (Auto) 1 % (0-3) Neutrophils # (Auto) 8.0 x10^3/uL (1.8-7.7) Lymphocytes # (Auto) 2.2 x10^3/uL (1.0-4.8) Monocytes # (Auto) 1.1 x10^3/uL (0.0-1.1) Eosinophils # (Auto) 0.1 x10^3/uL (0.0-0.7) Basophils # (Auto) 0.1 x10^3/uL (0.0-0.2) Sodium Level 138 mmol/L (136-145) Potassium Level 3.6 mmol/L (3.5-5.1) Chloride Level 101 mmol/L (98-107) Carbon Dioxide Level 33 mmol/L (21-32) Anion Gap 4 (6-14) Blood Urea Nitrogen 14 mg/dL (8-26) Creatinine 1.0 mg/dL (0.7-1.3) Estimated GFR (Cockcroft-Gault) 92.6 BUN/Creatinine Ratio 14 (6-20) Glucose Level 85 mg/dL (70-99) Calcium Level 8.7 mg/dL (8.5-10.1) Total Bilirubin 1.1 mg/dL (0.2-1.0) Aspartate Amino Transf (AST/SGOT) 24 U/L (15-37) Alanine Aminotransferase (ALT/SGPT) 41 U/L (16-63) Alkaline Phosphatase 86 U/L (46-116) Total Protein 8.1 g/dL (6.4-8.2) Albumin 3.6 g/dL (3.4-5.0) Albumin/Globulin Ratio 0.8 (1.0-1.7) SARS-CoV-2 Antigen (Rapid) Negative (NEGATIVE) Images: Images PROCEDURE: ANKLE RIGHT 3V XR EXAM OF ANKLE_RIGHT 3VIEWS, XR FOOT_RIGHT 3 VIEWS DATE: 05/04/2021 1:04 PM INDICATION: Pain swelling after twisting ankle 4 days ago COMPARISON: None. FINDINGS: Bones: Acute trimalleolar fracture with mild displacement. Joints: The ankle mortise is congruent. No widening of the distal tibiofibular syndesmosis. Miscellaneous: Soft tissue swelling about the ankle. IMPRESSION: Acute trimalleolar fracture PROCEDURE: TIBIA FIBULA RIGHT Right tibia-fibula AP lateral x-rays HISTORY: Twisting injury with trimalleolar fracture right ankle. FINDINGS: Acute traumatic comminuted fracture of the distal fibula metadiaphysis into the lateral malleolus. Acute traumatic fracture of the tibial plafond and medial malleolus with intra-articular extension. This is consistent with a trimalleolar fracture. There is no fracture of the shaft of the tibia or fibula or of the proximal segments at the calf or knee. IMPRESSION: Acute traumatic trimalleolar fracture of the tibia and fibula at the ankle. No additional fractures of the upper segments of the tibia and fibula at the calf or knee evident. Assessment/Plan Assessment/Plan Acute right trimalleolar fracture Admit to hospitalist service for further management Ortho consult On-call to the OR tomorrow for ORIF Will defer to Ortho, for DVT prophylaxis N.p.o. at midnight CODE STATUS full Discussed with RN and SW Disposition on-call to the OR tomorrow DPOA: Parents Justifications for Admission Other Justification MARIO ALBERTO MATHEWS MD May 04, 2021 16:34
[2021-05-04] MEDS ORDERED: SENNOSIDES 8.6 MG TABLET PO PRN (17:15)
[2021-05-04] MEDS ORDERED: DEXTROSE 50% 25 GM / 50ML DISP.SYRIN. IV PRN (17:15)
[2021-05-04] MEDS ORDERED: ZOLPIDEM 5 MG TABLET. PO PRN (17:15)
[2021-05-04] MEDS ORDERED: LORazepam 0.5 MG TABLET PO PRN (17:15)
[2021-05-04] MEDS ORDERED: ACETAMINOPHEN 325 MG TABLET. PO PRN (17:15)
[2021-05-04] MEDS ORDERED: MORPHINE SULFATE 2 MG/ML INJ. IVP PRN (17:15)
[2021-05-04] MEDS ORDERED: PROCHLORPERAZINE 10 MG/2 ML VIAL. IV PRN (17:15)
[2021-05-04] MEDS ORDERED: ONDANSETRON PF 4 MG/2 ML VIAL. IVP PRN (17:15)
[2021-05-04] MEDS ORDERED: HYDROcodone/APAP 5/325MG 1 TAB TABLET PO PRN (17:15)
[2021-05-04] MEDS ORDERED: DOCUSATE SODIUM 100 MG CAPSULE. PO PRN (17:15)
[2021-05-04] MEDS ORDERED: MORPHINE SULFATE 2 MG/ML INJ. IV PRN (17:15)
[2021-05-04 19:20] VITALS: BP 122/71
[2021-05-04] MEDS: HYDROcodone/APAP 5/325MG 1 TAB TABLET PO PRN (21:40)
[2021-05-04 23:18] VITALS: BP 114/62
[2021-05-05] VITALS (9 sets, daily range): BP systolic 103–143; BP diastolic 54–96
[2021-05-05 07:46] LABS: BASO # 0.1 x10^3/uL (0.0-0.2); BASO % 1 % (0-3); EOS # 0.3 x10^3/uL (0.0-0.7); EOS % 4 % (0-3); HEMATOCRIT 37.4 % (39.0-53.0); LYMPH # 2.5 x10^3/uL (1.0-4.8); LYMPH % 29 % (24-48); MEAN CORPUSCULAR HEMOGLOBIN 31 pg (25-35); MEAN CORPUSCULAR HGB CONC 35 g/dL (31-37); MEAN CORPUSCULAR VOLUME 88 fL (79-100); MONO # 0.9 x10^3/uL (0.0-1.1); MONO % 11 % (0-9); NEUT # 4.8 x10^3/uL (1.8-7.7); NEUT % 56 % (31-73); PLATELET COUNT 277 x10^3/uL (140-400); RED BLOOD COUNT 4.23 x10^6/uL (4.30-5.70); RED CELL DISTRIBUTION WIDTH 13.2 % (11.5-14.5); WHITE BLOOD COUNT 8.6 x10^3/uL (4.0-11.0)
[2021-05-05 07:54] LABS: CALCIUM 8.4 mg/dL (8.5-10.1); GFR 92.6; MAGNESIUM 2.2 mg/dL (1.8-2.4); PHOSPHORUS 3.3 mg/dL (2.6-4.7); POTASSIUM 4.2 mmol/L (3.5-5.1)
[2021-05-05] MEDS ORDERED: LIDOCAINE 2% PF 5 ML VIAL. ONE (08:24)
[2021-05-05] MEDS ORDERED: PROPOFOL 10 MG/ML (20ML) VIAL. IV ONE ×2 (08:24→09:27)
[2021-05-05] MEDS ORDERED: DEXAMETHASONE SOD PHOS 4 MG/ML VIAL ONE ×2 (08:24→08:25)
[2021-05-05] MEDS ORDERED: MIDAZOLAM HCL/PF 2 MG/2 ML VIAL. ONE (08:25)
[2021-05-05] MEDS ORDERED: ONDANSETRON PF 4 MG/2 ML VIAL. ONE (08:25)
[2021-05-05] MEDS ORDERED: fentaNYL PF VIAL 100 MCG/2 ML VIAL ONE ×2 (08:28→10:51)
--- NOTE | 2021-05-05 09:08 | PDOC2 ---
Consult: DATE OF CONSULT: May 05, 2021 HISTORY Patient seen evaluated in the preoperative holding area. Site is marked consent is verified. He sustained a injury when he jumped off of a bunk bed about 5 days ago. He limped around on his right leg until he was convinced to go to the ER yesterday. X-rays revealed a trimalleolar ankle fracture with minimal displacement. He was admitted for potential surgical intervention. He denies any numbness or tingling. Review of systems is negative with the exception of his complaints IN HISTORY Past medical, surgical, family, and social history were reviewed in the EMR as of May 05, 2021 Physical exam: GENERAL: NAD HEAD: NCAT CHEST: No audible wheeze CV: extremities withour cyanosis ABD: soft Neuro: Alert and Awake MSK: Right ankle reveals splint to be intact. Compartments are soft. Neurovascular status is is intact into the toes. X-rays reveal a minimally displaced bimalleolar ankle fracture of the right ankle Diagnosis/ Plan Unstable right ankle fracture pattern with trimalleolar pattern Risk benefits possible complication alternative treatments rationale behind surgery and treatment options were discussed. He wishes to proceed with surgical treatment. Would anticipate 6 weeks nonweightbearing. This was discussed with him as well as his mother and father are present today. Proceed with open reduction internal fixation right ankle TIARA VALADEZ DO May 05, 2021 9:08 am
--- NOTE | 2021-05-05 09:08 | PDOC4 ---
OPERATIVE NOTE: SURGERY DATE: May 05, 2021 PROCEDURE: Open reduction internal fixation right ankle trimalleolar fracture PREOPERATIVE DIAGNOSIS: Right ankle fracture, unstable POSTOPERATIVE DIAGNOSIS: Same SURGEON: Nato Ley ASSIST: None ANESTHESIA: General EBL: <50cc SPECIMEN: None POSITION: Supine COMPLICATIONS: None IMPLANT SPECIFICATIONS: [employer] DESCRIPTION OF PROCEDURE: The patient was seen in the preoperative holding area, the site was marked, and consent was verified. Patient received preoperative antibiotics and was wheeled back to the operating room. The Department of Anesthesia administered anesthetic and maintained control of the airway. A tourniquet was placed proximal on the operative extremity. Time out was observed. Sterile prep and drape was performed of the operative extremity. Esmarch was used to exsanguinate the limb and tourniquet was inflated. At this point a 10 cm incision was made laterally over the distal fibula. Soft tissue dissection was carried out sharply down to the fascial layer. The fascia was split just anterior to the peroneal tendons and muscle. This allowed direct visualization of the lateral cortex at the fibula distally. The fracture was identified, and a direct reduction was performed with lobster claw clamps. The fracture was fixed using a one third tubular plate and multiple AO screws. These were bicortical proximal to the fracture and deep unicortical cancellous screws distal. The wound was copiously irrigated, and a moist sponge was placed. Using fluoroscopy and external rotation view was obtained. The cotton test was performed revealing syndesmotic widening. At this point the syndesmosis screw were placed. We used 4 cortices screws x1. These were placed with syndesmotic compression with the foot in maximal dorsiflexion. Final x-rays using fluoroscopy were obtained. Cotton test and external rotation stress were performed and found to reveal no medial widening. Copious irrigation was run through the incision(s) and layered closure was performed. A large bulky dressing was applied. Anesthesia was reversed and the patient was transferred to postop in apparent stable condition. DISPOSITION: The patient will be discharged to home non-weight bearing and follow up in the clinic Prognosis: Fair. TIARA VALADEZ DO May 05, 2021 09:08
[2021-05-05] MEDS ORDERED: HYDROmorphone 2 MG/ML VIAL ONE ×2 (09:12→11:04)
[2021-05-05] MEDS ORDERED: KETOROLAC 30 MG/ML VIAL. ONE (09:18)
[2021-05-05] MEDS ORDERED: FAMOTIDINE 20 MG/2 ML VIAL ONE (09:20)
[2021-05-05] MEDS ORDERED: diphenhydrAMINE 50 MG/ML VIAL ONE (09:20)
[2021-05-05] MEDS ORDERED: BUPIVACAINE-EPI 0.5% 30 ML VIAL KIT. ONE (09:27)
[2021-05-05] MEDS ORDERED: SEVOFLURANE 61 TO 120 MINUTES. IH ONE (09:52)
[2021-05-05] MEDS ORDERED: HYDR-2765 PO (10:10)
--- NOTE | 2021-05-05 10:13 | DISCH ---
DISCHARGE INSTRUCTIONS Condition on Discharge Condition on Discharge: Stable Activity After Discharge Activity Instructions for Disc: Avoid exertion Bathing Instructions: Shower-keep dressing dry Driving Instructions after Dis: Do not drive Weight Bearing Status after Di: Non weight bearing Diet after Discharge Diet after Discharge: Regular Wound Incision Care Wound/Incision Care: Ice to area for comfort, Keep wound/cast CDI, Keep wound elevated, Do not change dressing Contacting the after DC Call your doctor for: If your condition worsens Follow-Up Follow up with: Call [phone] for ORTHOPEDIC follow up appt with DR VALADEZ in 2 WEEKS TIARA VALADEZ DO May 05, 2021 10:13 am
[2021-05-05] MEDS ORDERED: IV RINGERS,LACTATED 1000ML 1,000 ML IV SCH (10:45)
[2021-05-05] MEDS ORDERED: MORPHINE SULFATE 2 MG/ML INJ. IVP PRN (10:45)
[2021-05-05] MEDS ORDERED: PROCHLORPERAZINE 10 MG/2 ML VIAL. IVP PRN (10:45)
[2021-05-05] MEDS ORDERED: fentaNYL PF VIAL 100 MCG/2 ML VIAL IVP PRN (10:45)
[2021-05-05] MEDS: fentaNYL PF VIAL 100 MCG/2 ML VIAL IVP PRN ×2 (10:56→11:03)
[2021-05-05] MEDS: HYDROmorphone 2 MG/ML VIAL IVP PRN ×2 (11:12→11:32)
--- NOTE | 2021-05-05 12:13 | PDOC3 ---
[facility]-Discharge Summary Date of Admission: Date of Admission: May 04, 2021 Date of Discharge: Date of Discharge: May 05, 2021 Admission Diagnosis: Problems: (1) Trimalleolar fracture of ankle, closed Discharge Diagnosis: Discharge Diagnosis: Same Consults: Consults: Ortho Hospital Course: Hospital Course: History obtained from discussion with the ED physician and chart review 25 year old male presents emergency department chief complaint of right ankle pain swelling bruising for the past 4 days. Patient reports he was in [facility] and jumped off the top bunk and rolled his ankle feeling a crack, patient reports he has been unable to ambulate or put pressure on his right foot and ankle since the incident. Patient reports he just got out of [facility] today and came straight to the emergency department for medical evaluation. Patient denies other physical complaints or physical concerns. Denies allergies to medications, states she does not take any ivol-scy-bxaakob or prescription medications at home. Patient reports a 8 out of 10 pain. 05/05 Patient underwent ORIF this morning tolerated well. Evaluated postop doing well. Per Dr. Gomez okay to discharge home today from his perspective. Will have patient work with PT OT just to make sure he is okay on crutches. Make sure he can tolerate diet and then can send home. Greater than 30 min spent on this discharge Disposition: Disposition/Orders: D/C to Home Activity: Activity: Resume previous activity Diet: Diet: Regular Medications: Home Meds Active Scripts Hydrocodone Bit/Acetaminophen (HYDROCODONE-APAP 7.5-325 ) 1 Tab Tablet, 1 TAB PO Q4-6HRS PRN for PAIN for 7 Days, #42 TAB 0 Refills Prov:TIARA GOMEZ DO 05/05/21 Benzonatate (TESSALON PERLE) 100 Mg Capsule, 1 CAP PO TID, #30 CAP Prov:TROY TRAN BLOOD COORDINATOR 06/27/19 Oseltamivir Phosphate (TAMIFLU) 75 Mg Capsule, 1 CAP PO BID, #10 CAP Prov:TROY TRAN BLOOD COORDINATOR 06/27/19 Meclizine Hcl (MECLIZINE HCL) 25 Mg Tablet, 1 TAB PO PRN TID PRN for DIZZINESS, #30 TAB Prov:FABRICIO HUERTAS BLOOD COORDINATOR 05/31/19 Hydrocortisone (ANUSOL-HC) 30 Gm Cream..g., 1 YULI TP BID PRN for Rectal bleeding, #30 GM Prov:FABRICIO BLOCK DO 02/18/19 Cyclobenzaprine Hcl (CYCLOBENZAPRINE HCL) 10 Mg Tablet, 1 TAB PO TID, #21 TAB Prov:ABHINAV SANCHEZ MD 01/09/19 Orphenadrine Citrate (ORPHENADRINE CITRATE) 100 Mg Tablet.er, 100 MG PO BID PRN for MUSCLE PAIN, #14 Prov:FABRICIO BLOCK DO 01/08/19 Discontinued Scripts Tramadol Hcl (ULTRAM) 50 Mg Tablet, 50 MG PO Q6HRS PRN for PAIN, #14 TAB 0 Refills Prov:ABHINAV SANCHEZ MD 01/09/19 Hydrocodone/Apap 5-325 (NORCO 5-325 TABLET) 1 Each Tablet, 0.5-1 TAB PO PRN Q6HRS PRN for PAIN, #10 TAB 0 Refills Prov:FABRICIO BLOCK DO 01/08/19 Scheduled Benzonatate (Tessalon Perle), 1 CAP PO TID Cyclobenzaprine Hcl (Cyclobenzaprine Hcl), 1 TAB PO TID Oseltamivir Phosphate (Tamiflu), 1 CAP PO BID Scheduled PRN Hydrocodone Bit/Acetaminophen (Hydrocodone-Apap 7.5-325 ), 1 TAB PO Q4-6HRS PRN for PAIN Hydrocortisone (Anusol-Hc), 1 YULI TP BID PRN for Rectal bleeding Meclizine Hcl (Meclizine Hcl), 1 TAB PO PRN TID PRN for DIZZINESS Orphenadrine Citrate (Orphenadrine Citrate), 100 MG PO BID PRN for MUSCLE PAIN Discontinued Medications Hydrocodone/Apap 5-325 (Mobile 5-325 Tablet), 0.5-1 TAB PO PRN Q6HRS PRN for PAIN Tramadol Hcl (Ultram), 50 MG PO Q6HRS PRN for PAIN Justicifation of Admission Dx: Justifications for Admission: Justification of Admission Dx: Yes Fracture: Fracture TIARA GRANT MD May 05, 2021 12:12
[2021-05-05] MEDS: HYDROcodone/APAP 5/325MG 1 TAB TABLET PO PRN (16:17)
--- NOTE | 2021-05-05 16:44 | NUR ---
Patient discharge home with self care today, via wheelchair, accompanied by this RN. Patient is stable, IV removed, and discharge paperwork given to patient. Patient and mother verbalized understanding of follow up and discharge instruction.
== END 2021-05-05 16:47 | disposition home or self-care (01) ==
LOC: ER 11:49 → 4 NORTH 14:50
PROVIDERS: ADMIT Internal Medicine; ATTEND Internal Medicine
DX: S82.851A Displaced trimalleolar fracture of right lower leg, initial encounter for closed fracture (principal); Z20.822 Contact with and (suspected) exposure to COVID-19; F17.210 Nicotine dependence, cigarettes, uncomplicated; F12.90 Cannabis use, unspecified, uncomplicated; F17.200 Nicotine dependence, unspecified, uncomplicated; W06.XXXA Fall from bed, initial encounter; X50.1XXA Overexertion from prolonged static or awkward postures, initial encounter; Y93.39 Activity, other involving climbing, rappelling and jumping off; Y92.148 Other place in prison as the place of occurrence of the external cause; Y99.8 Other external cause status
CPT/HCPCS: 27822; 36415; 73590; 73610; 73630; 80048; 80053; 83735; 84100; 85025; 87426; 96374; 96375; 97161; 97530; 99284; G0378; J0690; J1100; J1170; J1200; J1885; J2250; J2270; J2405; J2704; J3010; J7120; U0003; U0005; 76000; A4223; A4322; A4930; A6253; A6257; A6402; A6449; A6450; A6455; C1713; G0379; J3490